=== PATIENT | male | born 1995 | race Hispanic/Latino ===

== ENCOUNTER 2018-09-02 00:40 | Emergency (ER) | payer OTHER ==
[2018-09-02] MEDS ORDERED: DEXAMETHASONE SOD PHOSPHATE 10MG/ML 1ML VIAL ONE (01:31)
== END 2018-09-02 02:22 | disposition home or self-care (01) ==
LOC: EDH 00:40
DX: J02.9 Acute pharyngitis, unspecified (principal); Z88.0 Allergy status to penicillin
CPT/HCPCS: 87804 ×2; 96372; 99284; J1100

== ENCOUNTER 2019-08-13 23:26 | Emergency (ER) | payer OTHER ==
[2019-08-13] MEDS ORDERED: NEOMYCIN/POLYMYXIN/HC OTIC SUSP 10ML BOTTLE ONE (23:43)
[2019-08-13] MEDS ORDERED: IBUPROFEN 800 MG TAB ONE (23:55)
== END 2019-08-14 00:02 | disposition home or self-care (01) ==
LOC: EDH 23:26
DX: H60.8X1 Other otitis externa, right ear (principal); Z88.0 Allergy status to penicillin